=== PATIENT | female | born 1995 | race Asian ===

== ENCOUNTER 2023-03-07 23:09 | Inpatient (IN) ==
[2023-03-07] MEDS ORDERED: LIDOCAINE 1% LOCAL 20 ML VIAL INFIL PRN (23:44)
[2023-03-07] MEDS ORDERED: OXYTOCIN 30 UNITS/NSS 30 UNITS/500 ML BAG IV PRN (23:44)
[2023-03-08] MEDS: LACTATED RINGER'S 1,000 ML IV PRN ×2 (00:16→02:43)
[2023-03-08 00:25] LABS: Hematocrit (blood only) 39.1 % (37.0-47.0); Hemoglobin 13.2 g/dl (12.0-16.0); Mean Corpuscular Hemoglobin 27.2 pg (25.0-34.0); Mean Corpuscular Hgb Conc 33.8 g/dL (32.0-36.0); Mean Corpuscular Volume 80.5 fL (80.0-100.0); Platelet Count 258 K/uL (130-400); RDW Standard Deviation 43.5 fL (36.4-46.3); Red Blood Count 4.86 M/uL (4.20-5.40); White Blood Count 15.05 K/ul (4.8-10.8)
[2023-03-08] MEDS ORDERED: fentANYL 2 MCG/ML BUPIVacaine 0.125%-NSS 100ML BAG ONE (00:44)
[2023-03-08] MEDS ORDERED: fentaNYL citrate PF 100 MCG/2 ML VIAL ONE (00:44)
[2023-03-08] MEDS ORDERED: BUPIVACAINE 0.25% PF 30 ML VIAL ONE (00:44)
[2023-03-08] MEDS ORDERED: ePHEDrine sulfate 50 MG/ML AMP ONE (00:44)
[2023-03-08] MEDS ORDERED: SODIUM CHLORIDE 0.9% PF INJ 10 ML VIAL ONE (00:44)
[2023-03-08] MEDS ORDERED: LIDOCAINE 2%/EPINEPHRINE 1:200,000 20 ML PF ONE (00:44)
[2023-03-08] MEDS ORDERED: NALBUPHINE HCL 5 MG in SYRINGE 0 ML IV PRN (01:06)
[2023-03-08] MEDS ORDERED: LIDOCAINE 2%/EPINEPHRINE 1:200,000 20 ML PF EPI STA (01:06)
[2023-03-08] MEDS ORDERED: fentaNYL citrate PF 100 MCG/2 ML VIAL EPI PRN (01:06)
[2023-03-08] MEDS ORDERED: diphenhydrAMINE 50 MG/ML VIAL IV PRN (01:06)
[2023-03-08] MEDS ORDERED: SODIUM CHLORIDE 0.9% PF INJ 10 ML VIAL EPI PRN (01:06)
[2023-03-08] MEDS ORDERED: BUPIVACAINE 0.25% PF 30 ML VIAL EPI PRN (01:06)
[2023-03-08] MEDS ORDERED: LIDOCAINE 2% MPF LOCAL 5 ML VIAL EPI PRN (01:06)
[2023-03-08] MEDS ORDERED: NALOXONE HCL 1 MG in SODIUM CHLORIDE 0.9% 1,000 ML IV PRN (01:06)
[2023-03-08] MEDS ORDERED: ROPIVACAINE 0.5% PF 5 MG/ML 20 ML VIAL EPI PRN (01:06)
[2023-03-08] MEDS ORDERED: NALOXONE HCL 0.4 MG/1 ML VIAL/CARP IV PRN (01:06)
[2023-03-08] MEDS ORDERED: BUPIVACAINE 0.25% PF 30 ML VIAL EPI STA (01:06)
[2023-03-08] MEDS ORDERED: fentANYL 2 MCG/ML BUPIVacaine 0.125%-NSS 100ML BAG EPI PRN (01:06)
[2023-03-08] MEDS ORDERED: fentaNYL citrate PF 100 MCG/2 ML VIAL EPI STA (01:06)
[2023-03-08] MEDS ORDERED: ePHEDrine sulfate 50 MG/ML AMP IV PRN (01:06)
[2023-03-08] MEDS ORDERED: SODIUM CHLORIDE 0.9% PF INJ 10 ML VIAL EPI STA (01:06)
--- NOTE | 2023-03-08 01:06 | Anesthesiology Consultation ---
Date of Service March 08, 2023 Assessment & Plan (1) Encounter for pre-operative examination: (2) Gestational diabetes: Chart Review Chart Review: Patient NOT seen in Pre Admission Testing and Acceptable Risk for Labor Epidural Consults Requested none History Height/Weight Height: 5 ft 3 in Weight: 64.41 kg Allergies Allergy/AdvReac Type Severity Reaction Status Date / Time No Known Allergies Allergy Verified 03/05/23 15:48 Medications Home Medications Medication Instructions Recorded Confirmed Last Taken ondansetron 4 mg disintegrating 4 mg PO Q6H PRN nausea and 10/10/22 03/07/23 Unknown tablet vomiting #10 tabs vits no.124-ferrous fum 1 tab PO DAILY 10/10/22 03/07/23 03/06/23 27 mg iron-folic acid 800 mcg tablet ( Vitamin) acetone (urine) test (Ketone Urine #50 ea 11/23/22 03/05/23 Unknown Test strips) blood sugar diagnostic (OneTouch #150 ea 11/23/22 03/05/23 Unknown Verio test strips) blood-glucose meter (OneTouch #1 ea 11/23/22 03/05/23 Unknown Verio Reflect Meter) lancets 33 gauge #150 ea 11/23/22 03/05/23 Unknown ferrous sulfate 325 mg (65 mg mg 03/07/23 03/06/23 iron) tablet Active Medications Generic Name Dose Route Start Last Admin Trade Name Freq PRN Reason Stop Dose Admin Lactated Ringer's 1,000 mls @ 125 mls/hr 03/07/23 23:44 03/08/23 00:45 Lr IV 03/09/23 23:43 999 mls/hr .Q8H PRN Infusion L&D Protocol Protocol Past Medical History Medical History (Updated 03/08/23 @ 01:06 by Marcos Loyola DO) Encounter for pre-operative examination Gestational diabetes No significant medical problems Past Family History Family History Father Hypertension Diabetes Mother Diabetes Denies family history of Ovarian cancer Breast cancer Colorectal cancer Past Surgical History Surgical History No pertinent past surgical history Social History Smoking Status: Never smoker Do You Dip or Chew Tobacco: No Hx Alcohol Use: No Hx Substance Use: No substance use type: does not use Physical Exam Vital Signs Last Vital Signs Temp 98.2 F 03/07/23 23:20 Pulse 82 03/08/23 01:01 Resp 20 03/07/23 23:20 BP 111/73 03/07/23 23:25 Pulse Ox 100 03/08/23 01:01 Testing Laboratory Results 03/08/23 00:11 03/07/23 23:53 POC Glucose 121 H
--- NOTE | 2023-03-08 07:51 | History & Physical Report ---
Date of Service March 08, 2023 Assessment & Plan (1) Encounter for supervision in primigravida, antepartum: Plan Will admit to labor and delivery for further management VSS FHT category 1 Rh positive GBS negative Epidural prn Manage expectantly All questions answered History of Present Illness Chief Complaint: LABOR CHECK Primary Care Provider: [facility] Gabby is a 27 y/o female currently at IUP 39 2/7 WGA with an LATESHA 03/13/23 as determined by US who is here for Labor check after she noticed reddish discharge associated with contractions every 10 minutes that gradually increased in frequency until they were occurring every 5 minutes. (+) contractions (+) movement (+) fluid loss (-) bloody show External FHT and external uterine monitors used * Category 1 tracing * Moderate FHT variability. Had regular appointments since 2nd trimester. OB Labs: Hemoglobin 11.3 g/dl (12.0-16.0) L 12/25/22 Hematocrit 33.4 % (37.0-47.0) L 12/25/22 Mean Corpuscular Volume 78.7 fL (80.0-100.0) L 10/10/22 Platelet Count 286 K/uL (130-400) 10/10/22 Glucose 1 Hour 50 gm Load 177 mg/dl (70-130) H 10/20/22 OB Optional Labs: No Data to Display Labs Reviewed: Initial OB Labs (08/18/22) Blood Type & RH B positive Antibody Screennegative HCT/HGB35.1/12.3 [id number] Hep C IgG 13yrs+ Oldnon reactive Pap Test ChlamydiaNEGATIVE Gonorrheanegative Rubellaimmune RPRnon reactive Urine Culture/Screen< 10,000 col mixed ajit HBsAgnegative HIVnon reactive MCV78 Allergies Allergy/AdvReac Type Severity Reaction Status Date / Time No Known Allergies Allergy Verified 03/05/23 15:48 Home Medications Medication Instructions Recorded Confirmed Type ondansetron 4 mg disintegrating 4 mg PO Q6H PRN nausea and 10/10/22 03/07/23 Rx tablet vomiting #10 tabs vits no.124-ferrous fum 1 tab PO DAILY 10/10/22 03/07/23 History 27 mg iron-folic acid 800 mcg tablet ( Vitamin) acetone (urine) test (Ketone Urine #50 ea 11/23/22 03/05/23 Rx Test strips) blood sugar diagnostic (OneTouch #150 ea 11/23/22 03/05/23 Rx Verio test strips) blood-glucose meter (OneTouch #1 ea 11/23/22 03/05/23 Rx Verio Reflect Meter) lancets 33 gauge #150 ea 11/23/22 03/05/23 Rx ferrous sulfate 325 mg (65 mg mg 03/07/23 History iron) tablet Patient History Medical History (Updated 03/09/23 @ 07:18 by Evelin Tracy MD, FACOG) Encounter for pre-operative examination Gestational diabetes No significant medical problems Surgical History No pertinent past surgical history Family History Father Hypertension Diabetes Mother Diabetes Denies family history of Ovarian cancer Breast cancer Colorectal cancer Social History Smoking Status: Never smoker Second Hand Exposure: No; Do You Dip or Chew Tobacco: No; Hx Alcohol Use: No Hx Substance Use: No Preferred Language: Indonesian Communication Ability: Effective [employer] Required: No Beliefs That Will Affect Care: Spiritism Spiritism Beliefs: episcopal marital status: Current Living Situation: Spouse Other Information That Helps Us Care for You: No Feels Safe at Home: Yes Safety Concerns: Feels Safe At This Time Assistive Devices: Glasses 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 Denies shortness of breath or respiratory difficulty. no chest pain and no palpitations no dysuria no headache(s) Physical Exam Physical Exam: General: Alert, oriented x3. Afebrile. No acute distress. Eyes: Pupils equal and reactive to light bilaterally. Extraocular movement intact bilaterally. Cardiac: Regular rate and rhythm, no murmurs/rubs/gallops. Respiratory: Clear to auscultation bilaterally a/p, no wheezes/rales/rhonchi. No increased work of breathing. Symmetrical chest rise. No respiratory distress. Abdomen: Gravid; FHR baseline at 145-150 bpm; Position: Vertex Pelvic: 10 / 100 / +[address] Say Lower Extremities: No lower extremity edema or swelling. No deep calf pain. Fanny's negative bilaterally Results & Data Vital Signs (Past 12 Hours) Vital Signs Temp Pulse Resp BP Pulse Ox 03/08/23 07:41 81 97 03/08/23 07:38 81 117/72 03/08/23 07:36 79 98 03/08/23 07:31 83 97 03/08/23 07:26 88 99 03/08/23 07:24 99 H 116/74 03/08/23 07:21 78 97 03/08/23 07:16 93 H 98 03/08/23 07:15 36.8 C 20 03/08/23 07:11 91 H 99 03/08/23 07:09 95 H 114/73 03/08/23 07:06 88 98 03/08/23 07:01 94 H 98 03/08/23 07:00 18 03/08/23 07:00 18 03/08/23 06:56 95 H 99 03/08/23 06:54 93 H 117/77 03/08/23 06:51 88 99 03/08/23 06:46 87 98 03/08/23 06:41 90 98 03/08/23 06:40 37.1 C 03/08/23 06:39 102 H 121/69 03/08/23 06:36 88 98 03/08/23 06:31 92 H 99 03/08/23 06:30 18 03/08/23 06:30 18 03/08/23 06:26 100 H 98 03/08/23 06:22 95 H 117/73 03/08/23 06:21 92 H 99 03/08/23 06:16 90 98 03/08/23 06:11 89 99 03/08/23 06:08 85 120/75 03/08/23 06:06 88 99 03/08/23 06:01 93 H 99 03/08/23 06:00 18 03/08/23 06:00 18 03/08/23 05:56 89 99 03/08/23 05:52 87 111/67 03/08/23 05:51 92 H 100 03/08/23 05:46 94 H 99 03/08/23 05:41 103 H 100 03/08/23 05:39 88 112/69 03/08/23 05:36 99 H 100 03/08/23 05:31 118 H 99 03/08/23 05:30 18 03/08/23 05:30 18 03/08/23 05:26 93 H 96 03/08/23 05:22 95 H 105/57 L 03/08/23 05:21 89 99 03/08/23 05:16 92 H 99 03/08/23 05:11 100 H 99 03/08/23 05:07 91 H 110/61 03/08/23 05:06 87 98 03/08/23 05:01 84 98 03/08/23 05:00 16 03/08/23 05:00 16 03/08/23 04:56 94 H 98 03/08/23 04:52 104 H 108/59 L 03/08/23 04:51 88 99 03/08/23 04:46 87 99 03/08/23 04:41 81 99 03/08/23 04:39 91 H 116/61 03/08/23 04:36 94 H 100 03/08/23 04:31 93 H 99 03/08/23 04:30 18 03/08/23 04:30 18 03/08/23 04:26 88 99 03/08/23 04:22 89 119/77 03/08/23 04:21 98 H 98 03/08/23 04:16 89 97 03/08/23 04:11 91 H 98 03/08/23 04:07 88 117/78 03/08/23 04:06 87 98 03/08/23 04:01 95 H 98 03/08/23 04:00 18 03/08/23 04:00 18 03/08/23 03:56 85 98 03/08/23 03:52 83 124/75 03/08/23 03:51 107 H 96 03/08/23 03:46 90 98 03/08/23 03:41 96 H 99 03/08/23 03:40 36.8 C 03/08/23 03:38 94 H 117/69 03/08/23 03:36 88 98 03/08/23 03:31 100 H 98 03/08/23 03:26 93 H 99 03/08/23 03:22 85 106/62 03/08/23 03:21 82 97 03/08/23 03:16 79 97 03/08/23 03:11 80 98 03/08/23 03:07 82 109/64 03/08/23 03:06 84 98 03/08/23 03:01 78 97 03/08/23 02:56 82 98 03/08/23 02:53 77 114/65 03/08/23 02:51 92 H 97 03/08/23 02:46 81 98 03/08/23 02:41 99 H 100 03/08/23 02:38 80 116/71 03/08/23 02:36 79 97 03/08/23 02:31 77 96 03/08/23 02:30 16 03/08/23 02:30 16 03/08/23 02:26 77 97 03/08/23 02:22 73 119/69 03/08/23 02:21 78 99 03/08/23 02:16 79 98 03/08/23 02:11 80 98 03/08/23 02:07 77 110/65 03/08/23 02:06 76 97 03/08/23 02:01 77 98 03/08/23 02:00 16 03/08/23 02:00 16 03/08/23 01:56 78 96 03/08/23 01:51 76 97 03/08/23 01:50 74 18 111/64 03/08/23 01:46 75 112/63 99 03/08/23 01:41 97 03/08/23 01:41 74 03/08/23 01:41 73 124/64 03/08/23 01:36 75 96 03/08/23 01:35 73 18 112/64 03/08/23 01:31 79 99 03/08/23 01:30 36.9 C 76 16 112/59 L 03/08/23 01:28 83 112/62 03/08/23 01:26 100 03/08/23 01:26 77 03/08/23 01:26 75 111/62 03/08/23 01:25 18 03/08/23 01:25 18 03/08/23 01:21 96 H 100 03/08/23 01:16 95 H 100 03/08/23 01:11 81 100 03/08/23 01:06 90 100 03/08/23 01:01 82 100 03/08/23 00:56 91 H 100 03/08/23 00:51 85 100 01/15/24 00:46 92 H 100 03/07/23 23:25 85 111/73 03/07/23 23:20 36.8 C 20 Supervising Physician Co-Signing Physician Notes Resident Physician Supervision Note: I was present with Dr. Goldberg during the history and exam. I discussed the case with the resident and agree with the findings and plan as documented in the note. Any exceptions or clarifications are listed here: [None] Documented By: Kayleen Deal MD, FACOG
[2023-03-08] MEDS ORDERED: OXYTOCIN 30 UNITS/NSS 30 UNITS/500 ML BAG IV PRN ×2 (07:53→10:55)
--- NOTE | 2023-03-08 07:57 | Labor Progress Brief Note ---
Date of Service March 08, 2023 Subjective pt resting with epidural, denies pain Assessment & Plan (1) Normal labor: (2) Gestational diabetes: Plan will add pit as contraction pattern not regular enough. then start 2nd stage. plan q2hr bsgs. fhts categ 1. Admission and Anticipated Discharge Date Admission Date: March 07, 2023 Physical Exam Constitutional: WD/WN, vitals as above Genitourinary: OB Exam Monitor Tracing: + external FHT monitor used, + external uterine monitor used (q5), + category I and + normal FHT variability Results & Data Vital Signs (Past 12 Hours) Vital Signs Temp Pulse Resp BP Pulse Ox 03/08/23 07:53 80 105/60 03/08/23 07:51 91 H 98 03/08/23 07:46 102 H 98 03/08/23 07:41 81 97 03/08/23 07:38 81 117/72 03/08/23 07:36 79 98 03/08/23 07:31 83 97 03/08/23 07:26 88 99 03/08/23 07:24 99 H 116/74 03/08/23 07:21 78 97 03/08/23 07:16 93 H 98 03/08/23 07:15 98.2 F 20 03/08/23 07:11 91 H 99 03/08/23 07:09 95 H 114/73 03/08/23 07:06 88 98 03/08/23 07:01 94 H 98 03/08/23 07:00 18 03/08/23 07:00 18 03/08/23 06:56 95 H 99 03/08/23 06:54 93 H 117/77 03/08/23 06:51 88 99 03/08/23 06:46 87 98 03/08/23 06:41 90 98 03/08/23 06:40 98.8 F 03/08/23 06:39 102 H 121/69 03/08/23 06:36 88 98 03/08/23 06:31 92 H 99 03/08/23 06:30 18 03/08/23 06:30 18 03/08/23 06:26 100 H 98 03/08/23 06:22 95 H 117/73 03/08/23 06:21 92 H 99 03/08/23 06:16 90 98 03/08/23 06:11 89 99 01/15/24 06:08 85 120/75 03/08/23 06:06 88 99 03/08/23 06:01 93 H 99 03/08/23 06:00 18 03/08/23 06:00 18 03/08/23 05:56 89 99 03/08/23 05:52 87 111/67 03/08/23 05:51 92 H 100 03/08/23 05:46 94 H 99 03/08/23 05:41 103 H 100 03/08/23 05:39 88 112/69 03/08/23 05:36 99 H 100 03/08/23 05:31 118 H 99 03/08/23 05:30 18 03/08/23 05:30 18 03/08/23 05:26 93 H 96 03/08/23 05:22 95 H 105/57 L 03/08/23 05:21 89 99 03/08/23 05:16 92 H 99 03/08/23 05:11 100 H 99 03/08/23 05:07 91 H 110/61 03/08/23 05:06 87 98 03/08/23 05:01 84 98 03/08/23 05:00 16 03/08/23 05:00 16 03/08/23 04:56 94 H 98 03/08/23 04:52 104 H 108/59 L 03/08/23 04:51 88 99 03/08/23 04:46 87 99 03/08/23 04:41 81 99 03/08/23 04:39 91 H 116/61 03/08/23 04:36 94 H 100 03/08/23 04:31 93 H 99 03/08/23 04:30 18 03/08/23 04:30 18 03/08/23 04:26 88 99 03/08/23 04:22 89 119/77 03/08/23 04:21 98 H 98 03/08/23 04:16 89 97 03/08/23 04:11 91 H 98 03/08/23 04:07 88 117/78 03/08/23 04:06 87 98 03/08/23 04:01 95 H 98 03/08/23 04:00 18 03/08/23 04:00 18 03/08/23 03:56 85 98 03/08/23 03:52 83 124/75 03/08/23 03:51 107 H 96 03/08/23 03:46 90 98 03/08/23 03:41 96 H 99 03/08/23 03:40 98.2 F 03/08/23 03:38 94 H 117/69 03/08/23 03:36 88 98 03/08/23 03:31 100 H 98 03/08/23 03:26 93 H 99 03/08/23 03:22 85 106/62 03/08/23 03:21 82 97 03/08/23 03:16 79 97 03/08/23 03:11 80 98 03/08/23 03:07 82 109/64 03/08/23 03:06 84 98 03/08/23 03:01 78 97 03/08/23 02:56 82 98 03/08/23 02:53 77 114/65 03/08/23 02:51 92 H 97 03/08/23 02:46 81 98 03/08/23 02:41 99 H 100 03/08/23 02:38 80 116/71 03/08/23 02:36 79 97 03/08/23 02:31 77 96 03/08/23 02:30 16 03/08/23 02:30 16 03/08/23 02:26 77 97 03/08/23 02:22 73 119/69 03/08/23 02:21 78 99 03/08/23 02:16 79 98 03/08/23 02:11 80 98 03/08/23 02:07 77 110/65 03/08/23 02:06 76 97 03/08/23 02:01 77 98 03/08/23 02:00 16 03/08/23 02:00 16 03/08/23 01:56 78 96 03/08/23 01:51 76 97 03/08/23 01:50 74 18 111/64 03/08/23 01:46 75 112/63 99 03/08/23 01:41 97 03/08/23 01:41 74 03/08/23 01:41 73 124/64 03/08/23 01:36 75 96 03/08/23 01:35 73 18 112/64 03/08/23 01:31 79 99 03/08/23 01:30 98.4 F 76 16 112/59 L 03/08/23 01:28 83 112/62 03/08/23 01:26 100 03/08/23 01:26 77 03/08/23 01:26 75 111/62 03/08/23 01:25 18 03/08/23 01:25 18 03/08/23 01:21 96 H 100 03/08/23 01:16 95 H 100 03/08/23 01:11 81 100 03/08/23 01:06 90 100 03/08/23 01:01 82 100 03/08/23 00:56 91 H 100 03/08/23 00:51 85 100 03/08/23 00:46 92 H 100 03/07/23 23:25 85 111/73 03/07/23 23:20 98.2 F 20 Coding Level of Care Code None Diagnoses Normal labor O80; Z37.9 Gestational diabetes O24.419
--- NOTE | 2023-03-08 10:46 | Delivery Summary ---
Vaginal Delivery Summary Date of Service March 08, 2023 Vaginal Delivery Summary and 2nd Degree LAC The patient dilated to complete and pushed to deliver a viable male infant Apgars 8 and 9 via over 2nd degree perineal laceration. Mouth and nose bulb suctioned at perineum. Shoulders and body delivered with ease. Infant was vigorous and crying at . Cord clamped at 30 seconds of life and to maternal abdomen where the cord was then doubly clamped and cut. Placenta delivered spontaneously and intact, three-vessel cord. Hemostasis achieved with dilute pitocin and uterine massage and drainage of the bladder for approximately 300 cc under sterile conditions. Laceration repaired in routine fashion with 3-0 and 2-0 vicryl. Cervix and sulci intact. EBL 300 cc. Mother and baby stable in recovery[place] [facility] [place] Charge Delivery Type Details: and 2nd Degree LAC
[2023-03-08] MEDS ORDERED: ACETAMINOPHEN 325 MG TAB PO PRN (10:55)
[2023-03-08] MEDS ORDERED: DIPHTHER/TETAN/PERTUS Vaccine (Tdap, Adol/Adult) 0.5mL IM ONE (10:55)
[2023-03-08] MEDS ORDERED: HYDROCORTISONE ACETATE 25 MG SUPP PR PRN (10:55)
[2023-03-08] MEDS ORDERED: BENZOCAINE 20% SPRY 85 APPLN/85 GM CAN EXT PRN (10:55)
[2023-03-08] MEDS ORDERED: OXYTOCIN 20 UNITS/LR 1,002 ML IV SCH (11:00)
--- NOTE | 2023-03-08 12:10 | Anesthesia Procedure Note ---
Date of Service March 08, 2023 Anesthesia Post Epidural Note Vital Signs Vital Signs: Temp Pulse Resp BP Pulse Ox 36.8 C 98 H 16 112/66 100 03/08/23 07:15 03/08/23 11:56 03/08/23 11:55 03/08/23 11:56 03/08/23 10:46 Pain Intensity Bilateral Lower Abdomen: Pain Intensity: 0 Notes Mental Status: alert / awake / arousable and participated in evaluation Nausea / Vomiting: adequately controlled Pain: adequately controlled Airway Patency, RR, SpO2: stable & adequate BP & HR: stable & adequate Hydration State: stable & adequate Neuraxial Anesthesia: was administered and sensory block resolved Anesthetic Complications: no major complications apparent and Pt Satisfied with anesthetic care Epidural: Removed without complications and With tip intact
[2023-03-08] MEDS: IBUPROFEN 600 MG TAB PO PRN ×2 (17:20→21:55)
[2023-03-08] MEDS: DOCUSATE SODIUM 100 MG CAP PO SCH (21:55)
[2023-03-09] MEDS: IBUPROFEN 600 MG TAB PO PRN ×4 (03:06→23:16)
--- NOTE | 2023-03-09 07:20 | Obstetrical Progress Note ---
Date of Service March 09, 2023 Assessment & Plan (1) care and examination: Plan stable doing well but having trouble with bottom pain. advised she needs to move more and that soreness will be pretty typical next 2wks. reviewed how perineal laceration heals. she is nursing so i did not get to examine perineum this am but per nursing, no issues. will begin sitz baths. routine care. rh pos, ri, . Day #:: 1 Subjective Ambulation: ambulating normally Voiding: no voiding problems Diet Tolerance:: regular diet Lochia:: Small Feeding Type:: breast feeding having pain in her "back side", she is not sure its her laceration. has not tried sitz baths. Constitutional: + as per Subjective / HPI Physical Exam Constitutional WD/WN, vitals as above Respiratory normal respiratory effort, lungs clear to auscultation Cardiovascular Rate/Rhythm: regular rate and regular rhythm Gastrointestinal (Abdomen) Inspection/Auscultation: abdomen normal to inspection Percussion/Palpation: abdomen soft Fundus firm 2cm down nt Musculoskeletal nt calves no edema Neurologic grossly normal Psychiatric A+Ox3, euthymic affect Results & Data Vital Signs (Past 12 Hours) Vital Signs Temp Pulse Resp BP Pulse Ox O2 Del Method 03/09/23 03:05 97.7 F 91 H 14 93/56 L 98 Room Air 03/08/23 23:40 98.1 F 81 17 103/66 97 Room Air 03/08/23 19:30 98.1 F 93 H 16 99/63 L 98 Room Air
[2023-03-09] MEDS: DOCUSATE SODIUM 100 MG CAP PO SCH ×2 (07:53→20:09)
[2023-03-09] MEDS: PRENATAL VITAMIN 1 TAB PO SCH (07:53)
[2023-03-09] MEDS ORDERED: bisacodyL 5 MG TABEC PO SCH (20:00)
[2023-03-10] MEDS ORDERED: bisacodyL 10 MG SUPP PR PRN
[2023-03-10] MEDS: IBUPROFEN 600 MG TAB PO PRN ×3 (04:16→14:54)
--- NOTE | 2023-03-10 07:50 | Obstetrical Progress Note ---
Date of Service <Caryn Goldberg MD - Last Filed: 03/10/23 07:50> March 10, 2023 Assessment & Plan <Caryn Goldberg MD - Last Filed: 03/10/23 07:50> (1) Encounter for care after hospital delivery: Patient with the above mentioned history and findings was evaluated at bedside and found awake, alert, oriented in all spheres, afebrile, and in no acute distress. Vital signs showed no fever and blood pressures remained stable. Her blood type is B positive and most recent hemoglobin is adequate at 13.2 g/dL. She is GBS negative and rubella immune. Overall, patient is doing well clinically and meeting the desired milestones. Since she is clinically and hemodynamically stable, will discharge today. OT to see her some time today to see if there is an alternative for after her discharge to manage her coccygeal pain until her donut pillow arrives. she was counseled to make an appointment with her OB in 6 weeks for her routine pp evaluation. Discharge instructions discussed. All questions answered. <Risa Long MD, FACOG - Last Filed: 03/10/23 08:01> (1) Encounter for care after hospital delivery: Subjective <Caryn Goldberg MD - Last Filed: 03/10/23 07:50> Gabby is a 27y/o female who is now PPD # 2 following at 39 2/7 weeks. Reports feeling well overall this morning. Refers mild abdominal cramping & 3/10 pain well managed on analgesics. Also reporting persistent pain in her backside that is somewhat relieved after laying on her side for a while. Voiding spontaneously. Has passed flatus but no bowel movements yet. Tolerating meals overnight and able to ambulate some. Some persistent lochia with some improvement this morning. on her side due to her backside pain. She has ordered a ring-shaped/ donut pillow on [employer] to keep pressure off her backside and perineum when sitting, which will arrive in a few days. Constitutional: no fever, no chills or no sweats Denies shortness of breath or difficulty breathing Cardiovascular: no chest pain or no palpitations Breast: no breast pain Genitourinary (female): no dysuria Neurologic: no headache(s) Denies changes in vision Physical Exam <Caryn Goldberg MD - Last Filed: 03/10/23 07:50> General: Alert. Oriented to person, time, and place. Afebrile. No acute distress. Eyes: pupils equal and reactive to light bilaterally, extraocular movements intact. Cardiac: Regular rate and rhythm, no murmurs/rubs/gallops. Respiratory: Clear to auscultation bilaterally a/p, no wheezes/rales/rhonchi. No increased work of breathing. Symmetrical chest rise. No respiratory distress. Abdomen: Soft, nontender, nondistended. Bowel sounds present. Uterus: Uterine fundus firm, palpable below umbilicus. Lower Extremities: No lower extremity edema or swelling. No deep calf pain. Fanny's negative bilaterally. Psych: Euthymic affect. Mood and affect congruence. Regular speech rate and content. Results & Data <Caryn Goldberg MD - Last Filed: 03/10/23 07:50> Vital Signs (Past 12 Hours) Vital Signs Temp Pulse Resp BP O2 Del Method 03/10/23 03:40 36.6 C 79 18 117/71 Room Air Supervising Physician <Risa Long MD, FACOG - Last Filed: 03/10/23 08:01> Co-Signing Physician Notes Resident Physician Supervision Note: I interviewed and examined the patient. Discussed with Dr. Goldberg and agree with findings and plan as documented in the note. Any exceptions or clarifications are listed here: [None] Documented By: Risa Long MD, FACOG
[2023-03-10] MEDS: DOCUSATE SODIUM 100 MG CAP PO SCH (08:23)
[2023-03-10] MEDS: PRENATAL VITAMIN 1 TAB PO SCH (08:23)
== END 2023-03-10 16:30 | disposition home or self-care (01) | DRG 807 ==
LOC: OPB 23:09 → 4S1 23:12 → 4E2 03-08 14:00